=== PATIENT | female | born 1980 | race Caucasian/White ===

== ENCOUNTER 2017-12-03 19:26 | Emergency (ER) | payer SELFPAY ==
[2017-12-03] MEDS ORDERED: Bacitracin Oint 1 GM U/D Packet TOP ONE (19:49)
[2017-12-03 19:50] VITALS: BP 132/82
--- NOTE | 2017-12-03 19:54 | EDM.PDOC ---
ED HPI GENERAL MEDICAL PROBLEM - General Chief Complaint: Laceration Stated Complaint: CUT ON LEFT POINTER FINGER Time Seen by Provider: 12/03/17 19:40 Source of Information: Reports: Patient History Limitations: Reports: No Limitations - History of Present Illness INITIAL COMMENTS - FREE TEXT/NARRATIVE: 36 yo female lacerated her L index finger at work shortly before arrival. Tetanus is UTD. 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: Dressing(s), Other (see below) (none) - Related Data Allergies Allergy/AdvReac Type Severity Reaction Status Date / Time Latex, Natural Rubber Allergy Rash Verified 12/03/17 19:43 Home Meds: Home Meds Cetirizine HCl/Pseudoephedrine [ZyrTEC-D] 1 tab PO BID PRN 11/05/15 [History] Past Medical History HEENT History: Reports: Allergic Rhinitis, Sinusitis 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: , Other (See Below) Other OB/BYN History: cyst on uterus, fibroids uterus Oncologic (Cancer) History: Reports: Leukemia, Other (See Below) 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 - Past Surgical History HEENT Surgical History: Reports: LASIK, Naso-Sinus Surgery, Other (See Below) Social & Family History - Tobacco Use Smoking Status *Q: Never Smoker ED ROS GENERAL - Review of Systems Review Of Systems: See Below Constitutional: Reports: No Symptoms HEENT: Reports: No Symptoms Musculoskeletal: Reports: No Symptoms Skin: Reports: Wound Neurological: Reports: No Symptoms ED EXAM, SKIN/RASH Exam: See Below Exam Limited By: No Limitations General Appearance: Alert, WD/WN, No Apparent Distress Eye Exam: Bilateral Eye: Normal Inspection Ears: Normal External Exam, Normal Canal, Hearing Grossly Normal Nose: Normal Inspection, Normal Mucosa, No Blood Throat/Mouth: Normal Voice, No Airway Compromise Head: Atraumatic, Normocephalic Neck: Normal Inspection Respiratory/Chest: No Respiratory Distress, No Accessory Muscle Use Neurological: Alert, Oriented, CN II-XII Intact, Normal Cognition, No Motor/ Sensory Deficits Psychiatric: Normal Affect, Normal Mood Skin: Warm, Dry, Normal Color, No Rash, Wound/Incision Location, Skin: Upper Extremity, Left Characteristics: Linear Associated features: Tenderness. No: Warmth, Swelling, Induration, Lymphangitis , Inflammation, Weeping Course - Vital Signs Text/Narrative:: Wound only 0.75 cm and not full thickness. Even though wound is over the PIP jt dorsally of the L index finger, the wound dose not open up even with full flexion. Wound cleaned and a dressing applied per nursing. Last Recorded V/S: Last Vital Signs Temp 36.9 C 12/03/17 19:48 Pulse 82 12/03/17 19:48 Resp 14 12/03/17 19:48 BP 132/82 12/03/17 19:48 Pulse Ox 99 12/03/17 19:48 - Orders/Labs/Meds Orders: Active Orders 24 hr Category Date Time Status Bacitracin [Bacitracin Oint 1 GM] Med 12/03/17 19:49 Once 1 dose TOP ONETIME ONE Departure - Departure Time of Disposition: 20:00 Disposition: Home, Self-Care 01 Condition: Good Clinical Impression: Finger laceration Qualifiers: Encounter type: initial encounter Finger: index finger Damage to nail status: without damage Foreign body presence: without foreign body Laterality: left Qualified Code(s): S61.211A - Laceration without foreign body of left index finger without damage to nail, initial encounter - Discharge Information Referrals: PCP,None [Primary Care Provider] - - My Orders Last 24 Hours: My Active Orders 12/03/17 19:49 Bacitracin [Bacitracin Oint 1 GM] 1 dose TOP ONETIME ONE - Assessment/Plan Last 24 Hours: My Active Orders 12/03/17 19:49 Bacitracin [Bacitracin Oint 1 GM] 1 dose TOP ONETIME ONE
== END 2017-12-03 20:09 | disposition home or self-care (01) ==
LOC: JP.ED 19:26
DX: S61.211A Laceration without foreign body of left index finger without damage to nail, initial encounter (principal); Z91.040 Latex allergy status; W45.8XXA Other foreign body or object entering through skin, initial encounter
CPT/HCPCS: 99281; 99283

== ENCOUNTER 2023-03-21 04:08 | Emergency (ER) | payer BC, OTHER ==
[2023-03-21 04:19] VITALS: BP 188/105; PULSE 109
[2023-03-21] MEDS ORDERED: HYDROmorphone 1 MG/ML Syringe IM ONE (04:31)
== END 2023-03-21 05:09 | disposition home or self-care (01) ==
LOC: JP.ED 04:08
DX: G89.18 Other acute postprocedural pain (principal); R10.31 Right lower quadrant pain; Z91.040 Latex allergy status
CPT/HCPCS: 96372; 99283; J1170